=== PATIENT | male | born 1950 | race Caucasian/White ===

== ENCOUNTER 2019-03-25 09:00 | Emergency (ER) | payer OTHER, BC ==
[~2019-03-25] VITALS: Ht 170.2 cm; Wt 65.8 kg
--- NOTE | 2019-03-25 09:00 | NUR ---
Patient to ER bed 2 to gown for evaluation. Side rails up.
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
[2019-03-25 09:05] VITALS: BP_SYST 115
--- NOTE | 2019-03-25 09:55 | NUR ---
ER Dr. Chen at bedside examining patient.
[2019-03-25] MEDS ORDERED: IBUPROFEN 600 MG TABLET PO ONE (10:00)
--- NOTE | 2019-03-25 10:08 | NUR ---
Patient given written and verbal discharge instructions and verbalizes understanding. ER MD discussed with patient the results and treatment provided. Patient in stable condition. ID arm band removed. Rx of motrin given. Patient educated on pain management and to follow up with PMD. Pain Scale 8/10, Dr. Chen is aware. Opportunity for questions provided and answered. Medication side effect fact sheet provided.
[2019-03-25 10:09] VITALS: BP_SYST 120
== END 2019-03-25 10:08 | disposition home or self-care (01) ==
LOC: SED 09:00
DX: M54.2 Cervicalgia (principal); Z85.46 Personal history of malignant neoplasm of prostate; Z88.0 Allergy status to penicillin; V89.2XXA Person injured in unspecified motor-vehicle accident, traffic, initial encounter; Y92.413 State road as the place of occurrence of the external cause; Y93.89 Activity, other specified; Y99.8 Other external cause status
CPT/HCPCS: 99283